=== PATIENT | female | born 1950 | race Caucasian/White ===

== ENCOUNTER 2022-10-03 08:00 | Outpatient (CLI) | payer BC | END 2022-10-03 23:59 | disposition home or self-care (01) | LOC: LAB.S 08:00 | PROVIDERS: ATTEND Emergency Medicine | DX: J02.8 Acute pharyngitis due to other specified organisms (principal) | CPT/HCPCS: 87070 ==

== ENCOUNTER 2023-05-07 11:07 | Outpatient (CLI) | payer BC ==
--- NOTE | 2023-05-07 13:23 | XRAY Report ---
PROCEDURE: Chest 2 View X-Ray INDICATIONS: COVID19 Infection TECHNIQUE: 2 views of the chest were acquired. COMPARISON: None. FINDINGS: Surgical changes and devices: None. Lungs and pleura: No pleural effusions or pneumothorax. Lungs are clear. Mediastinum: Mediastinal contours appear normal. Heart size is normal. Bones and chest wall: Degenerative changes. IMPRESSION: No acute radiographic abnormality. Reviewed by: Augie Gonsalves MD on 05/07/2023 1:22 PM PST Approved by: Augie Gonsalves MD on 05/07/2023 1:22 PM PST Station ID: [id number]
== END 2023-05-07 23:59 | disposition home or self-care (01) ==
LOC: DI.S 11:07
PROVIDERS: ATTEND Physician Assistant
DX: U07.1 COVID-19 (principal)